=== PATIENT | female | born 1945 ===

== ENCOUNTER 2018-07-03 01:06 | Emergency (ER) | payer OTHER ==
[~2018-07-03] VITALS: Ht 160 cm; Wt 77.1 kg
[2018-07-03] MEDS ORDERED: METOPROLOL TAR100 MG (01:07)
[2018-07-03] MEDS ORDERED: LOSARTAN POTAS100 MG (01:07)
[2018-07-03] MEDS ORDERED: ASPIR 8181 MG (01:08)
[2018-07-03] MEDS ORDERED: HYDROCHLORIC AC25 ML (01:08)
[2018-07-03] MEDS ORDERED: BACTRIM DS TAB1 EACH PO (08:33)
[2018-07-03] MEDS ORDERED: KETO10TA2 PO (08:33)
== END 2018-07-03 08:40 ==
LOC: ER 01:06
DX: N20.0 Calculus of kidney (principal); N39.0 Urinary tract infection, site not specified